=== PATIENT | female | born 1960 ===

== ENCOUNTER → 2018-01-02 09:43 | Outpatient (CLI) | payer OTHER | END | disposition home or self-care (01) | LOC: RAD 09:43 | DX: R07.89 Other chest pain (principal) ==

== ENCOUNTER 2018-03-15 09:40 | Outpatient (CLI) | payer OTHER | END 2018-03-15 09:43 | disposition home or self-care (01) | LOC: SONOGRAMA 09:40 → MAMO-SONO 10:15 | DX: E04.1 Nontoxic single thyroid nodule (principal) ==

== ENCOUNTER 2018-07-31 08:09 | Outpatient (CLI) | payer OTHER | END 2018-07-31 08:14 | disposition home or self-care (01) | LOC: SONOGRAMA 08:09 | DX: E04.2 Nontoxic multinodular goiter (principal) ==

== ENCOUNTER → 2018-11-03 | Outpatient (CLI) | payer OTHER | END | disposition home or self-care (01) | LOC: RAD 10:50 | DX: M51.36 Other intervertebral disc degeneration, lumbar region (principal) ==

== ENCOUNTER 2018-11-18 13:57 | Outpatient (CLI) | payer OTHER | END 2018-11-18 14:06 | disposition home or self-care (01) | LOC: MAMO-SONO 13:57 | DX: Z12.39 Encounter for other screening for malignant neoplasm of breast (principal); Z12.31 Encounter for screening mammogram for malignant neoplasm of breast ==

== ENCOUNTER 2019-02-13 10:07 | Outpatient (CLI) | payer OTHER | END 2019-02-13 10:10 | disposition home or self-care (01) | LOC: RAD 10:07 | DX: M70.61 Trochanteric bursitis, right hip (principal); M25.551 Pain in right hip; M25.552 Pain in left hip; R26.89 Other abnormalities of gait and mobility; M54.5 Low back pain; E66.01 Morbid (severe) obesity due to excess calories; M47.816 Spondylosis without myelopathy or radiculopathy, lumbar region; M51.36 Other intervertebral disc degeneration, lumbar region; M62.81 Muscle weakness (generalized) ==

== ENCOUNTER 2019-04-03 09:28 | Outpatient (CLI) | payer OTHER | END 2019-04-03 09:33 | disposition home or self-care (01) | LOC: RAD 09:28 | DX: R06.02 Shortness of breath (principal) ==